=== PATIENT | male | born 1990 | race Caucasian/White ===

== ENCOUNTER 2023-04-15 18:05 | Outpatient (CLI) | payer OTHER, BC | END 2023-04-15 23:59 | disposition critical access hospital (66) | LOC: EMS 18:05 | DX: M54.2 Cervicalgia (principal); V23.49XA Other motorcycle driver injured in collision with car, pick-up truck or van in traffic accident, initial encounter; Y92.414 Local residential or business street as the place of occurrence of the external cause | CPT/HCPCS: A0425; A0429 ==

== ENCOUNTER 2023-04-15 18:17 | Emergency (ER) | payer OTHER, BC ==
[2023-04-15] MEDS ORDERED: KETOROLAC 30 MG/ML VIAL IVP STA (18:27)
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
[2023-04-15 21:43] VITALS: BP 134/94; O2SAT 97
== END 2023-04-15 21:39 | disposition home or self-care (01) ==
LOC: ED 18:17
DX: S16.1XXA Strain of muscle, fascia and tendon at neck level, initial encounter (principal); S09.21XA Traumatic rupture of right ear drum, initial encounter; T14.8XXA Other injury of unspecified body region, initial encounter; V23.49XA Other motorcycle driver injured in collision with car, pick-up truck or van in traffic accident, initial encounter; Y92.410 Unspecified street and highway as the place of occurrence of the external cause
CPT/HCPCS: 96374; 99284